=== PATIENT | female | born 1955 | race Caucasian/White ===

== ENCOUNTER 2016-04-26 13:52 | Outpatient (CLI) | payer BC ==
--- NOTE | 2016-04-26 20:15 | RAD ---
PELVIS: Date: 04-26-16 FINDINGS: An AP view of the pelvis shows no sign of fracture, resent or remote. The pelvic bones appear intac t. The SI joints are symmetric and the symphysis shows no widening or off set. The pubic rings aung ear intact. The arcuate lines of the sacrum appear intact. The hips show no sign of fracture. The right hip in particular shows no specific abnormality. The hip joints are symmetrical bilaterally. IMPRESSION: No significant bony finding. POS: HOME
== END 2016-04-26 13:53 | disposition home or self-care (01) ==
LOC: BURRAD 13:52
PROVIDERS: ATTEND Physician Assistant
DX: M25.551 Pain in right hip (principal)
CPT/HCPCS: 72170